=== PATIENT | male | born 1960 | race Hispanic/Latino ===

== ENCOUNTER 2016-10-28 06:24 | Observation (INO) | payer OTHER ==
[2016-10-28 06:24] VITALS: BMI 26.6
[2016-10-28 06:37] VITALS: TEMP 98.2
[2016-10-28] MEDS ORDERED: Sodium Chloride 0.9% 1,000 ML IV STA (07:03)
--- NOTE | 2016-10-28 07:23 | ED PDOC ---
Arrival/HPI - General Chief Complaint: Abdominal Pain Time Seen by Provider: 10/28/16 07:01 Historian: Patient - History of Present Illness Narrative History of Present Illness (Text): 10/28/16 07:06 Pt is a 55 year old male, whose past medical history includes appendicitis and hypertension, presents to the emergency department complaining of intermittent periumbilical pain for the past few weeks. Pain is described as burning sensation that presented again 3 days ago, which is better with PO intake and worse with movement. No triggers for the pain. He denies any headache, blurred vision, or any other complaints at this time. Patient does not have any abd pain right now. The patient smokes and drinks, but does not use any drugs. Pt used to be on BP medication but cannot remember the name. He has been off of his BP meds for a long time now. PMD: None Time/Duration: 1 week Symptom Onset: Sudden Symptom Course: Intermittent Quality: Burning Severity Level: Mild Activities at Onset: Rest Modifying Factors (Text): better with PO intake and worse with movement Context: Home Associated Symptoms (Text): None Past Medical History - Provider Review Nursing Documentation Reviewed: Yes - Infectious Disease Hx of Infectious Diseases: None - Tetanus Immunization Tetanus Immunization: Unknown - Past Medical History Past Medical History: No Previous - Cardiac Hx Cardiac Disorders: Yes Hx Hypertension: Yes - Pulmonary Hx Respiratory Disorders: No - Neurological Hx Neurological Disorder: No - HEENT Hx HEENT Disorder: No - Renal Hx Renal Disorder: No - Endocrine/Metabolic Hx Endocrine Disorders: No - Hematological/Oncological Hx Blood Disorders: No - Integumentary Hx Dermatological Disorder: No - Musculoskeletal/Rheumatological Hx Musculoskeletal Disorders: No - Gastrointestinal Hx Gastrointestinal Disorders: No - Genitourinary/Gynecological Hx Genitourinary Disorders: No - Psychiatric Hx Psychophysiologic Disorder: No Hx Depression: No Hx Emotional Abuse: No Hx Physical Abuse: No Hx Substance Use: No - Surgical History Hx Appendectomy: Yes - Anesthesia Hx Anesthesia: Yes Hx Anesthesia Reactions: No Hx Malignant Hyperthermia: No - Suicidal Assessment Feels Threatened In Home Enviroment: No Family/Social History - Physician Review Nursing Documentation Reviewed: Yes Family/Social History: CVA/TIA, Neoplasm/Cancer, Other (alzheimer) Smoking Status: Heavy Smoker > 10 Cigarettes Daily Hx Alcohol Use: Yes Hx Substance Use: No Hx Substance Use Treatment: No Allergies/Home Meds Allergies/Adverse Reactions: Allergies No Known Allergies Allergy (Verified 10/28/16 06:30) Home Medications: Home Meds Medication Instructions Recorded Confirmed No Known Home Med 10/28/16 10/28/16 Review of Systems - Physician Review All systems were reviewed & negative as marked: Yes - Review of Systems Eyes: absent: Vision Changes Respiratory: Normal. absent: SOB Cardiovascular: Normal. absent: Chest Pain Gastrointestinal: Abdominal Pain Neurological: absent: Headache Physical Exam Vital Signs Reviewed: Yes Vital Signs Temp Pulse Resp BP Pulse Ox 10/28/16 09:55 55 L 16 164/104 H 98 10/28/16 08:24 65 16 167/100 H 97 10/28/16 08:14 58 L 189/113 H 10/28/16 06:36 98.2 F 70 17 174/117 H 99 Temperature: Afebrile Blood Pressure: Hypertensive Pulse: Regular Respiratory Rate: Normal Appearance: Positive for: Well-Appearing, Non-Toxic, Comfortable Pain Distress: None Mental Status: Positive for: Alert and Oriented X 3 - Systems Exam Head: Present: Atraumatic, Normocephalic Pupils: Present: PERRL Extroacular Muscles: Present: EOMI Conjunctiva: Present: Normal Ears: Present: Normal Mouth: Present: Moist Mucous Membranes Pharnyx: Present: Normal Nose (External): Present: Atraumatic Neck: Present: Normal Range of Motion Respiratory/Chest: Present: Clear to Auscultation, Good Air Exchange. No: Respiratory Distress, Accessory Muscle Use Cardiovascular: Present: Regular Rate and Rhythm, Normal S1, S2. No: Murmurs Abdomen: Present: Normal Bowel Sounds, Scars (old surgical scar in umbilical region). No: Tenderness, Distention, Peritoneal Signs, Rebound, Guarding Back: Present: Normal Inspection Upper Extremity: Present: Normal Inspection. No: Cyanosis, Edema Lower Extremity: Present: Normal Inspection. No: Edema Neurological: Present: GCS=15, CN II-XII Intact, Speech Normal Skin: Present: Warm, Dry, Normal Color. No: Rashes Psychiatric: Present: Alert, Oriented x 3, Normal Insight, Normal Concentration Medical Decision Making ED Course and Treatment: 10/28/16 07:06 Initial Impression: 1) periumbilical abdominal pain--but not present right now 2) HTN Differential Diagnosis included but are not limited to: gastritis, pancreatitis , PUD Plan: -- EKG -- Labs -- Urinalysis -- Pepcid, Trandate (for elevated BP) and IV Fluids -- Reassess and disposition Prior Visits: Notes and results from previous visits were reviewed--has been on labetolol in the past. The patient last presented to the emergency department on 11/27/14 for evaluation of a boil/abscess on his back. EKG:Ordered, reviewed, and independently interpreted the EKG. Rate : 55 BPM Rhythm : Sinus bradycardia Interpretation : [facility] - Lab Interpretations Lab Results: 10/28/16 07:40 10/28/16 07:40 Lab Results 10/28/16 07:40: Alcohol, Quantitative < 10 10/28/16 07:40: Sodium 139, Potassium 4.3, Chloride 106, Carbon Dioxide 26, Anion Gap 11, BUN 12, Creatinine 0.7, Est GFR ( Amer) > 60, Est GFR (Non- Af Amer) > 60, Random Glucose 85, Calcium 9.4, Total Bilirubin 0.4, AST 33, ALT 52, Alkaline Phosphatase 45, Lactate Dehydrogenase 312 L, Total Creatine Kinase 45, Troponin I < 0.01, Total Protein 6.9, Albumin 3.9, Globulin 3.0, Albumin/ Globulin Ratio 1.3, Amylase 117, Lipase 149 10/28/16 07:40: PT 10.7, INR 0.99, APTT 28.0 10/28/16 07:40: WBC 7.3, RBC 5.20, Hgb 16.3, Hct 46.2, MCV 88.8, MCH 31.3, MCHC 35.3, RDW 14.1, Plt Count 144, MPV 13.2 H, Gran % 56.7, Lymph % (Auto) 26.9, Castro % (Auto) 9.5 H, Eos % (Auto) 6.5 H, Baso % (Auto) 0.4, Gran # 4.12, Lymph # 2.0, Castro # 0.7 H, Eos # 0.5, Baso # 0.03 I have reviewed the lab results: Yes - Medication Orders Current Medication Orders: Famotidine (Pepcid) 20 mg IVP DAILY [facility] Last Admin: 10/28/16 08:14 Dose: 20 mg Sodium Chloride (Sodium Chloride 0.9%) 1,000 mls @ 100 mls/hr IV .Q10H STA Stop: 10/28/16 17:02 Last Admin: 10/28/16 07:41 Dose: 100 mls/hr Discontinued Medications Iohexol (Omnipaque 240 (50 Ml)) Confirm Administered Dose 50 ml .ROUTE .STK-MED ONE Stop: 10/28/16 09:24 Iohexol (Omnipaque 350 100 Ml) Confirm Administered Dose 350 mg .ROUTE .STK-MED ONE Stop: 10/28/16 11:07 Labetalol HCl (Trandate) 100 mg PO STAT STA Stop: 10/28/16 07:14 Last Admin: 10/28/16 08:14 Dose: 100 mg ED OBSERVATION Date of observation admission: 10/28/16 Time of observation admission: 09:12 - Observation admission statement Patient is being placed in observation because:: Patient's abd pain has returned. Will need further work up. Will get CT scan - Goals of Observation Goals of observation are:: Improvement of symptoms - Progress Note Progress Note: 10/28/16 10:30 On reevaluation, the patient is resting comfortable, awaiting CT scan. 10/28/2016 11:46 CT Abdomen and Pelvis with contrast: Creator : Zeb Luu MD COMPARISON: None. FINDINGS: LOWER THORAX: Unremarkable. LIVER: Unremarkable. No gross lesion or ductal dilatation. GALLBLADDER AND BILE DUCTS: Unremarkable. PANCREAS: Unremarkable. No gross lesion or ductal dilatation. SPLEEN: Unremarkable. ADRENALS: Unremarkable. No mass. KIDNEYS AND URETERS: Unremarkable. No hydronephrosis. No solid mass. VASCULATURE: Unremarkable. No aortic aneurysm. BOWEL: Unremarkable. No obstruction. No gross mural thickening. APPENDIX: Normal appendix. PERITONEUM: Unremarkable. No free fluid. No free air. LYMPH NODES: Unremarkable. No enlarged lymph nodes. BLADDER: Unremarkable. REPRODUCTIVE: Unremarkable. BONES: No acute fracture. OTHER FINDINGS: None. IMPRESSION: No acute intra-abdominal findings 10/28/16 12:05 CT unremarkable. Pt feels better. Will d/c home. - Scribe Statement The provider has reviewed the documentation as recorded by the Scribe 10/28/16 Bernie glass with Stephen Collins. Provider Scribe Attestation: All medical record entries made by the Scribe were at my direction and personally dictated by me. I have reviewed the chart and agree that the record accurately reflects my personal performance of the history, physical exam, medical decision making, and the department course for this patient. I have also personally directed, reviewed, and agree with the discharge instructions and disposition. Disposition/Present on Arrival - Present on Arrival Any Indicators Present on Arrival: No History of DVT/PE: No History of Uncontrolled Diabetes: No Urinary Catheter: No History of Decub. Ulcer: No History Surgical Site Infection Following: None - Disposition Have Diagnosis and Disposition been Completed?: Yes Diagnosis: Hypertension, Undifferentiated abdominal pain Disposition: HOME/ ROUTINE Disposition Time: 12:05 Patient Plan: Discharge Condition: IMPROVED
[2016-10-28 07:54] LABS: BASO # 0.03 K/mm3 (0.0-2.0); BASO % 0.4 % (0.0-3.0); EOS # 0.5 (0.0-0.7); EOS % 6.5 % (1.5-5.0); GRAN # 4.12 (1.4-6.5); GRAN % 56.7 % (50.0-68.0); HEMOGLOBIN 16.3 gm/dL (14.0-18.0); LYMPH % 26.9 % (22.0-35.0); MEAN CELL VOLUME 88.8 fL (80.0-105.0); MEAN CORPUSCULAR HEMOGLOBIN 31.3 pg (25.0-35.0); MEAN CORPUSCULAR HGB CONC 35.3 g/dl (31.0-37.0); MEAN PLATELET VOLUME 13.2 fl (7.0-11.0); MONO # 0.7 (0.1-0.6); MONO % 9.5 % (1.0-6.0); PLATELET COUNT 144 10^3/uL (120.0-450.0); RED CELL DISTRIBUTION WIDTH 14.1 % (11.5-14.5); WHITE BLOOD COUNT 7.3 10^3/ul (4.5-11.0)
[2016-10-28 07:59] LABS: ALB/GLOB RATIO 1.3 (1.1-1.8); ALBUMIN 3.9 g/dL (3.0-4.8); ALT/SGPT 52 U/L (7-56); AMYLASE 117 U/L (35-125); AST/SGOT 33 U/L (15-59); BLOOD UREA NITROGEN 12 mg/dL (7-21); CALCIUM 9.4 mg/dL (8.4-10.5); GFR AFRICAN-AMERICAN > 60; GFR NON-AFRICAN AMERICAN > 60; LIPASE 149 U/L (23-300)
[2016-10-28 08:01] LABS: INR 0.99 (0.93-1.08); PROTHROMBIN TIME 10.7 Seconds (9.9-11.8)
[2016-10-28 08:15] LABS: TROPONIN I < 0.01 ng/mL
[2016-10-28] MEDS ORDERED: Iohexol 240 (50 ml) ONE (09:23)
[2016-10-28 09:56] VITALS: O2SAT 98
[2016-10-28] MEDS ORDERED: Iohexol 350 MG/100 ML VIAL ONE (11:06)
--- NOTE | 2016-10-28 11:45 | CT ---
PROCEDURE: CT Abdomen and Pelvis with contrast HISTORY: c/o abd pain in periumbilical area COMPARISON: None. TECHNIQUE: Contrast dose: 100 cc of Omni 350 Radiation dose: Total exam DLP = 359 mGy-cm. This CT exam was performed using one or more of the following dose reduction techniques: Automated exposure control, adjustment of the mA and/or kV according to patient size, and/or use of iterative reconstruction technique. FINDINGS: LOWER THORAX: Unremarkable. LIVER: Unremarkable. No gross lesion or ductal dilatation. GALLBLADDER AND BILE DUCTS: Unremarkable. PANCREAS: Unremarkable. No gross lesion or ductal dilatation. SPLEEN: Unremarkable. ADRENALS: Unremarkable. No mass. KIDNEYS AND URETERS: Unremarkable. No hydronephrosis. No solid mass. VASCULATURE: Unremarkable. No aortic aneurysm. BOWEL: Unremarkable. No obstruction. No gross mural thickening. APPENDIX: Normal appendix. PERITONEUM: Unremarkable. No free fluid. No free air. LYMPH NODES: Unremarkable. No enlarged lymph nodes. BLADDER: Unremarkable. REPRODUCTIVE: Unremarkable. BONES: No acute fracture. OTHER FINDINGS: None. IMPRESSION: No acute intra-abdominal findings
[2016-10-28 12:23] VITALS: RESP 17
--- NOTE | 2016-10-28 12:30 | CARD ---
APPROVED REPORT EKG Measurement Heart [id number] <Conclusion> Sinus bradycardia Possible Left atrial enlargement Left ventricular hypertrophy T wave abnormality, consider lateral ischemia Abnormal ECG
[2016-10-28 13:30] VITALS: BP 149/97; PULSE 56
[2016-10-28 14:17] LABS: URINE APPEARANCE CLEAR (CLEAR); URINE BILIRUBIN NEGATIVE (NEGATIVE); URINE BLOOD NEGATIVE (NEGATIVE); URINE COLOR YELLOW (YELLOW); URINE GLUCOSE (UA) NEGATIVE (NEGATIVE); URINE LEUKOCYTE ESTERASE TRACE Leu/uL (NEGATIVE); URINE NITRATE NEGATIVE (NEGATIVE); URINE PROTEIN NEGATIVE mg/dL (<30 mg/dL); URINE UROBILINOGEN 0.2 E.U./dL (<1 E.U./dL)
[2016-10-28 14:30] LABS: URINE BACTERIA FEW (NEG); URINE EPITHELIAL CELLS 0 - 2 /hpf (0-5); URINE RBC NEGATIVE /hpf (0-2); URINE WBC 0 - 2 /hpf (0-6)
== END 2016-10-28 12:04 | disposition home or self-care (01) ==
LOC: ED 06:24 → EROBSV 09:11
PROVIDERS: ADMIT Emergency Medicine; ATTEND Emergency Medicine
DX: R10.33 Periumbilical pain (principal); I10 Essential (primary) hypertension
CPT/HCPCS: 74177; 80053; 80320; 81001; 82150; 82550; 83615; 83690; 84484; 85025; 85610; 85730; 87086; 93005; 96374; 99284; G0378; J7040; Q9966; Q9967